=== PATIENT | male | born 1990 | race Caucasian/White ===

== ENCOUNTER 2017-08-30 01:42 | Emergency (ER) | payer BC ==
[2017-08-30] MEDS ORDERED: morphine 4 MG/ML VIAL (02:18)
[2017-08-30] MEDS ORDERED: ONDANSETRON 4 MG INJ (02:18)
[2017-08-30] MEDS: morphine 4 MG/ML VIAL IV ×2 (02:32→04:52)
[2017-08-30] MEDS: ONDANSETRON 4 MG INJ IV (02:33)
[2017-08-30] MEDS: KETOROLAC 30 MG INJ IV (04:52)
== END 2017-08-30 05:09 | disposition home or self-care (01) ==
LOC: E/R 01:42
DX: S50.02XA Contusion of left elbow, initial encounter (principal); S62.002A Unspecified fracture of navicular [scaphoid] bone of left wrist, initial encounter for closed fracture; R40.2142 Coma scale, eyes open, spontaneous, at arrival to emergency department; R40.2252 Coma scale, best verbal response, oriented, at arrival to emergency department; R40.2362 Coma scale, best motor response, obeys commands, at arrival to emergency department; W18.39XA Other fall on same level, initial encounter; Y92.9 Unspecified place or not applicable
CPT/HCPCS: 29125; 73080-LT; 73110-LT; 96374; 96375; 96376; 99284-25